=== PATIENT | female | born 1965 | race Caucasian/White ===

== ENCOUNTER → 2019-02-08 10:58 | Outpatient (CLI) | payer BC, SELFPAY ==
--- NOTE | 2019-02-05 03:11 | HP_ITS ---
Intake Vital Signs 02/05/19 Height 5 ft 3 in 02/05/19 Weight: 150 lb 02/05/19 Body Mass Index (BMI) 26.5 02/05/19 Blood Pressure 150/84 H 02/05/19 Blood Pressure Location Rt brachial 02/05/19 Blood Pressure Position Sitting 02/05/19 Respiratory Rate 18 02/05/19 Pulse Rate 67 02/05/19 Pulse Source Monitor 02/05/19 Temperature 98.5 F 02/05/19 Temperature Source Oral 02/05/19 Pulse Ox 98 02/05/19 Oxygen Delivery Method room air Intake Visit Reasons: R Breast Birads 4 Mammo [facility] Machine Operator Required: No Is patient in pain?: No Allergies amoxicillin Allergy (Severe, Verified 02/05/19 14:09) rash/throat swells gabapentin Allergy (Intermediate, Verified 02/05/19 14:09) mental issues minocycline Allergy (Unknown, Verified 02/05/19 14:09) unknown Medications cholecalciferol (vitamin D3) 2,000 unit capsule 2,000 unit PO DAILY 02/05/19 [History Confirmed 02/05/19] multivitamin capsule 1 cap PO DAILY 02/05/19 [History Confirmed 02/05/19] PFSH Medical History Abnormal mammogram of right breast (Acute) Abnormal mammogram of right breast (Acute) Depression with anxiety (Acute) History of back problems (Acute) Lump of right breast (Acute) Surgical History History of arthroscopy of left knee (Acute) History of lumbar laminectomy (Acute) History of right breast biopsy (Acute) History of tubal ligation (Acute) history diagnostic laparoscopy (Acute) Family History Grandmother Breast cancer Colon cancer Diabetes Heart disease Mother Hypertension Hypercholesterolemia Cancer skin Social History Smoking Status: Former smoker alcohol intake: never substance use type: does not use HPI HPI HPI: VERA LYNN, is a 53 F who presents to the office today for HPI HPI Surgical H&P: Yes HPI: VERA LYNN, is a 53 F who presents to the office today for surgical consultation for an abnormal mammogram. The patient is referred by Dr. Yesenia Kumar and a written compromise surgical consult and recommendations will return to her. I have assisted the patient in the past. Most recently July 16, 2011. That point recanted that she is a A0 for female. First child was born when she was 17. She did breast-feed but only for 3 weeks. She has had a very remote right breast biopsy which was negative. She was on estrogen replacement for period of time. Family history is negative for breast cancer or mastitis. The patient has had known fibrocystic breast disease bilaterally. She has had previous cyst aspiration particular the right breast but it recurs. I aspirated her in 2010. The patient presents because of intermittent soreness swelling even to the degree of may be some erythema upper mid right breast. She states however that by the time she gets a appointment that the area seems to resolve. On January 31, 2019 at the [facility] she had bilateral mammography. The mammograms suggested scattered cysts both breasts. There are regional pleomorphic calcifications of the right breast 12:00 anterior depth. These are felt to have increased in size BI-RADS Category 4. The patient also had dedicated right and left breast ultrasound. The left breast ultrasound demonstrated a simple cyst. The right breast ultrasound demonstrated BI-RADS Category 3. A 2.5 cm benign-appearing cyst right breast 12 o'clock position that correlates with the palpable abnormality. There is a 5 mm probably benign complex cyst 12:00. There is an additional 1 cm probably benign cyst with internal echoes right breast 12:00. An additional cyst at 1:00. The patient has not had any nipple discharge. Finally the patient has a small crescent shaped area of seemingly dermatitis associated with the areola. She states that she is scheduled to have Dr. Yesenia Kumar perform a punch biopsy of the skin area ROS General General: Yes fatigue; no weight change, appetite, colon cancer, breast cancer or weakness HEENT HEENT: No difficulty swallowing, eye injury, eye surgery, swollen glands or hoarseness Endo Endocrine: No thyroid disease, diabetes mellitus, thyroid cancer, Hair loss, heat intolerance or cold intolerance Skin Skin: Yes rash; no changing moles Breast Breast: Yes right breast lump, abnormal mammogram and abnormal US; no left breast lump, nipple discharge, breast pain or breast enlargement Musc Musculoskeletal: Yes back problems; no arthritis, rheumatoid arthritis, gout or joint pain Cardio Cardiovascular: No murmur, pacemaker, heart disease, atrial fibrillation, high blood pressure, heart attack, heart stent, palpitations, shortness of breat with exertion or chest pain Psych Psychiatric: Yes depression and anxiety; no hearing voices Resp Respiratory: No shortness of breath, No sleep apnea, No cough, No COPD, No asthma, No emphysema, No wheezing Gastro Gastrointestinal: Yes abdominal pain, No nausea or vomiting, Yes diarrhea, Yes constipation, No blood in stool, Yes acid reflux, No hemorrhoids, No ulcers, No gallbladder problem, No black,tarry stools Elia Hematologic: No blood thinners, No blood disorders, No bleeding, No anemia, No blood clots Neuro Neurologic: No system reviewed and no additional complaints, except as docu, No as per HPI, No abnormal walking, No abnormal hearing, No abnormal movements, No abnormal speech, No behavioral changes, No burning sensations, No confusion, No seizure-like activity, No unsteadiness, No dizziness, No localized weakness, No frequent falls, No headache(s), No lack of coordination, No loss of vision, No memory loss, No numbness, No other visual disturbances, No radiating pain, No restless legs, No sensory deficit, No fainting, No tingling, No tremor(s), No weakness, No other Exam Const General: cooperative, healthy appearing, comfortable, no acute distress Nutritional Appearance: average body habitus Orientation: alert, awake, oriented x3 HENMT Head: normal to inspection Chest Breast Palpation: No nipple discharge Other: Right breast: Rubbery nodule 12 o'clock position +1 cm from the areola. Tender. Mild diffuse fibrous change upper outer right breast. No nipple discharge. No axillary or clavicular adenopathy. Inner aspect of the right areolar there is a 2 x 0.5 cm crescent shaped area of slight erythematous skin. Left breast is nodularity at retroareolar 1 o'clock position. Rubbery mobile. No nipple discharge. No axillary or clavicular adenopathy Resp Effort & Inspection: normal respiratory effort Auscultation: clear to auscultation bilaterally Cardio Rate: regular rate Rhythm: regular rhythm Heart Sounds: no murmurs GI Inspection: normal to inspection Palpation: soft, no hepatosplenomegaly Auscultation: normal bowel sounds Neuro Cognition: normal cognition Extrem General: no calf tenderness bilaterally Psych Affect: normal affect Assessment & Plan 1. Abnormal mammogram of right breast R92.8 Plan Pleasant 53-year-old female with 3 separate issues. There are clustered increased microcalcifications upper mid right breast 12 o'clock position. I recommend stereotactic needle core biopsy of this area. The patient has a dominant cyst upper mid right breast. She has some smaller cysts which have some questionable internal echoes. The larger cyst waxes and wanes constantly gives her discomfort. Regarding this area I would recommend a ultrasound-guided mammotome biopsy of the larger cyst at least in an attempt to disrupt it possibly. The smaller cyst could be addressed with ultrasound-guided fine-needle aspiration to definitively determine that they are cysts. Finally the patient is already scheduled to have a punch biopsy of the right areolar dermatologic issue. This finding does not suggest Paget's. I appreciate the opportunity of assisting with surgical care. We will try to schedule and work around Dr. Kumar's plan procedures as well I appreciate the opportunity of assisting with her surgical care CC: Dr. Yesenia Kumar and Carolyn Lazo, [facility] Braden Dsouza M.D., F.A.C.S. Coding Level of Care Code Detailed, Low Diagnoses Abnormal mammogram of right breast R92.8 02/05/19 1511 <Electronically signed by Braden Dsouza MD> Date Braden Dsouza MD Patient reviewed and no changes. Emely
[2019-02-05 14:07] VITALS: BMI 26.5
--- NOTE | 2019-02-08 11:30 | BRBX_PTH ---
PATIENT: VERA LYNN LOC: [facility] U#:[id number] AGE/SX: 59/F ROOM: RE02/08/[address]: Dr. Braden Dsouza MD : 1965 BED: DIS: SPEC #: [id number] RECD: 02/08/19 12:55 STATUS: KHOI BRETT #: [id number] YULIYA: 02/08/19 11:[address]: Braden Dsouza DEPT: SURGICAL PATHOLOGY RECD BY: Juliana Brian ENTERED: 02/08/19 13:41 SP TYPE: BREAST BX WILLI DR: Carolyn Lazo, [facility] OFFICER-Kasandra Tissues: Right breast, NOS Procedures: Surgery Specimen Level IV HEADER OPERATION: Right breast stereotactic biopsy PRE-OP DIAGNOSIS: Right breast calcifications 12 o'clock anterior depth TISSUE SUBMITTED: Right breast core tissue ISCHMEIC TIME: 1 minute FIXATION TIME: 8.5 hours MICROSCOPIC DIAGNOSIS Right breast at 12 o'clock, stereotactic core biopsy: 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 Fibrocystic change with rupture and associated reactive change. Microcalcifications. Unremarkable fragment of skin. AM:judith 02/09/19 COMMENT Case has been reviewed in consultation with Dr. Cochran who concurs with the above diagnosis. IDC:GRUPO MICROSCOPIC DESCRIPTION Slides are reviewed. GROSS DESCRIPTION Received is one container labeled with the patient's name and not further designated. The specimen consists of multiple elongated fragments of irwin-yellow fibroadipose tissue mixed with blood clot that in aggregate measure 5 x 2 x 0.3 cm. The entire specimen is submitted in two cassettes. / GRUPO:judith 02/08/19 TC:? CPT: 37254
--- NOTE | 2019-02-08 11:56 | PCM.OPRPT ---
Problem List (1) Abnormal mammogram of right breast Status: Acute Report of Operation Date of Procedure: 02/08/19 Pre-Operative Diagnosis: Extensive microcalcifications upper mid right breast Post-Operative Diagnosis: Same Surgery/Procedure Performed:: Stereotactic needle core biopsy upper mid right breast Description of Surgical Findings:: Timeout and informed consent was obtained. 53-year-old female was taken to the stereotactic suite placed on the table the right breast was placed in the cc view. There are extensive amount of microcalcifications present. This is not one tight area of focal clustering. Stereotactic images were obtained. Digital information was taken on a single target site. The breast was prepped with Betadine. 1% lidocaine was used as local anesthetic. A total of 10 cc was used. A small stab incision was created. The resolve mammotome needle was advanced to prefire depth. Prefire films were obtained demonstrating adequate localization foot. The device was fired. 7 cores were obtained. This did take a slight amount of skin is the area was more superficial than anticipated. Specimen mammograms were obtained. Every single core had microcalcifications present. Small marking clip was left in position. She was released from the device. Pressure was held for hemostasis. Sure prep and then Steri-Strips applied to approximate the skin followed by a Telfa OpSite dressing. The specimens had immediately been placed in formalin for analysis. She tolerated the procedure well no apparent complication. She will be notified of pathology results as they become available. She also has a large symptomatic cyst in the upper mid right breast. At her discretion she might return to the office for consideration of ultrasound-guided mammotome biopsy of this in hopes of disrupting it. Braden Dsouza M.D., F.A.C.S. Type of Anesthesia:: Local Estimated Blood Loss (mL): minimal
== END ==
PROVIDERS: Family Provider Nurse Practitioner Adult Health; PCP Nurse Practitioner Adult Health; Referring Provider Surgery; Visit Provider Surgery
DX: N60.91 Unspecified benign mammary dysplasia of right breast (principal); N60.01 Solitary cyst of right breast; Z87.891 Personal history of nicotine dependence; Z98.51 Tubal ligation status
CPT/HCPCS: 19081; 88305; J7050

== ENCOUNTER → 2020-06-05 14:51 | Outpatient (CLI) | payer BC, SELFPAY ==
[2019-02-05 14:07] VITALS: BMI 26.5
[2020-06-05 17:39] LABS: Absolute Lymphocyte Count 1.82 X10^3/uL (0.83-4.51); Basophil# 0.05 X10^3/uL; Basophil% 0.9 % (0-1); Eosinophil# 0.07 X10^3/uL; Eosinophils% 1.3 % (0-5); Hematocrit 37.7 % (37-47); Hemoglobin 12.3 g/dL (12.0-15.0); Lymphocyte # 1.82 X10^3/ul (4.0); Lymphocyte % 33.5 % (19-41); Mean Corp Hgb Conc 32.6 g/dL (32-36); Mean Corpuscular Hgb 29.9 pg (27.0-32.0); Mean Corpuscular Volume 91.7 fL (81-99); Mean Platelet Vol. 9.4 fl (6.2-12.0); Monocyte# 0.44 X10^3/uL; Monocyte% 8.1 % (0-10); NRBC Flagged by Analyzer 0 % (0-5); Neutrophil # 3.03 X10^3/uL (2.7-7.7); Neutrophil % 55.8 % (47-70); Platelet Count 265 K/mm3 (150-450); RBC Distribution Width CV 12.7 % (11.6-14.6); RBC Distribution Width SD 42.3 fl (35.1-43.9); Red Blood Count 4.11 M/mm3 (4.2-5.4); White Blood Count 5.4 K/mm3 (4.4-11.0)
[2020-06-05 17:49] LABS: Vitamin B12 610 pg/mL (211-911); Vitamin D,25 Hydroxy 51.5 ng/mL
[2020-06-05 17:55] LABS: Erythrocyte Sedimentation Rate 12 mm/hr (0-30)
[2020-06-05 18:02] LABS: AST(SGOT) 19 U/L (15-37); Alanine Aminotransfer ALT/SGPT 36 U/L (13-56); Albumin, Serum 3.6 g/dL (3.2-5.0); Alkaline Phosphatase 89 U/L (45-117); Anion Gap 5 (5-15); BUN 14 mg/dL (7-18); BUN/Creat Ratio 19.3 RATIO (10-20); Calcium,Total 8.8 mg/dL (8.5-10.1); Chloride 107 mmol/L (98-107); Creatinine, Serum 0.73 mg/dL (0.55-1.02); EST Glomerular Filtration Rate 88 mL/min (>60); Est Glom Filt Rate - Afr Amer 106 mL/min (>60); Free T3 2.9 pg/mL (2.18-3.98); Globulin 3.5 g/dL (2.2-4.2); Glucose 94 mg/dL (74-106); Potassium 3.6 mmol/L (3.5-5.1); Protein, Total 7.1 g/dL (6.4-8.2); Sodium Level 140 mmol/L (136-145); T4 Free Direct 0.92 ng/dL (0.76-1.46); Thyroid Stim Hormone (TSH) 0.62 uIU/mL (0.358-3.74)
== END ==
PROVIDERS: PCP Family Medicine; Referring Provider Family Medicine; Visit Provider Family Medicine
DX: R53.83 Other fatigue (principal); R79.89 Other specified abnormal findings of blood chemistry
CPT/HCPCS: 36415; 80053; 82306; 82533; 82607; 82746; 84439; 84443; 84481; 85025; 85652

== ENCOUNTER 2020-09-02 06:15 | Day surgery (SDC) | payer BC, SELFPAY ==
[2019-02-05 14:07] VITALS: BMI 26.5
[2020-09-02 06:45] VITALS: BP 117/84; PULSE 76; RESP 16; TEMP 36.3; O2SAT 98; BMI 26.3
[2020-09-02] MEDS: Lactated Ringers 1,000 ML 100 ML IV (06:50)
--- NOTE | 2020-09-02 07:30 | COLBX_PTH ---
PATIENT: VERA LYNN LOC: EN U#:[id number] AGE/SX: 54/F ROOM: RE09/02/[address]: Dr. Braden Dsouza MD : 1965 BED: DIS: 09/02/2020 SPEC #: [id number] RECD: 09/02/20 11:42 STATUS: KHOI REJeffrey #: [id number] YULIYA: 09/02/20 07:[address]: Braden Dsouza DEPT: SURGICAL PATHOLOGY RECD BY: Yenni Sosa ENTERED: 09/03/20 08:37 SP TYPE: COLON BX OTHR DR: Dr. Luis Parsons MD Tissues: Ascending colon Procedures: Surgery Specimen Level IV HEADER OPERATION: Colonoscopy - open access (MAC) PRE-OP DIAGNOSIS: Screening for intestinal cancer TISSUE SUBMITTED: Mid ascending polyp MICROSCOPIC DIAGNOSIS Mid ascending colon polyp, biopsy: Tubular adenoma. AM:judith 09/03/20 MICROSCOPIC DESCRIPTION Slides are reviewed. GROSS DESCRIPTION Received in fixative is one container labeled with the patient's name and designated mid ascending polyp. The specimen consists of one irregular fragment of light irwin soft tissue that measures 0.6 x 0.5 x 0.2 cm. The specimen is totally submitted in one cassette. / AM:judith 09/02/20 TC:5 CPT: 63754
--- NOTE | 2020-09-02 07:30 | PCM.HP.STD ---
Problem List (1) Screening for intestinal cancer Status: Acute History of Present Illness Date of Admission: 09/02/20 The patient is a 54 year old F who presents for screening colonoscopy today. Her previous 1 was 10 years ago. She denies bright red blood per rectum or melena. No abdominal pain. She otherwise feels well. Past Medical History Medical History: Medical History (Last Reviewed 02/05/19 @ 14:05 by Rosemary Freeman) Abnormal mammogram of right breast (Acute) R92.8 Abnormal mammogram of right breast R92.8 Depression with anxiety F41.8 History of back problems Lump of right breast N63.10 Allergies amoxicillin Allergy (Severe, Verified 09/02/20 06:45) rash/throat swells gabapentin Allergy (Intermediate, Verified 09/02/20 06:45) mental issues minocycline Allergy (Unknown, Verified 09/02/20 06:45) unknown Home Medications: Ambulatory Orders Medication Instructions Recorded cholecalciferol (vitamin D3) 50 2,000 unit PO DAILY 02/05/19 mcg (2,000 unit) capsule Escitalopram Oxalate [Lexapro] 10 mg PO DAILY 08/26/20 Surgical History: Surgical History (Last Updated 02/05/19 @ 14:06 by Rosemary Freeman) History of arthroscopy of left knee Z98.890 History of lumbar laminectomy Z98.890 History of right breast biopsy Z98.890 History of tubal ligation Z98.51 history diagnostic laparoscopy Smoking Status: Former smoker Tobacco Use: Non-smoker Review of Systems Constitutional: Denies: Fever, Night Sweats Cardiovascular: Denies: Chest Pain Respiratory: Denies: Cough, Shortness of Breath Gastrointestinal: Denies: Abdominal Pain, Hematochezia, Melena Musculoskeletal: Denies: Leg Pain Endocrine: Denies: Change in Body Habitus VTE Information - Inpt Only VTE Present on Admission: No - Physical Exam Vitals/I&O's: Vital Signs Temp Pulse Resp BP Pulse Ox 97.4 F L 76 16 117/84 H 98 09/02/20 06:45 09/02/20 06:45 09/02/20 06:45 09/02/20 06:45 09/02/20 06:45 Oxygen Delivery Method Room Air Weight: 148 lb 12.992 oz Body Mass Index (BMI) 26.3 General: Alert, Oriented x3, Cooperative, No apparent distress HEENT: Atraumatic Lungs: Clear to auscultation, Normal air movement Cardiovascular: Regular rate, Regular Rhythm Abdomen: Soft, Non Tender Extremities: No Calf Tenderness Psych/Mental Status: Normal Affect Microbiology Past 72 Hours 09/01/20 10:10 Interface Orders SARS-CoV-2 Antigen (Rapid) - Final Current Medications Lactated Ringer's () 1,000 mls @ 100 mls/hr IV .Q10H KRISTINA Last Admin: 09/02/20 06:50 Dose: 100 mls/hr Documented by: Assessment/Plan All Active Problems (Last Reviewed 02/05/19 @ 14:05 by Rosemary Freeman) Screening for intestinal cancer (Acute) Abnormal mammogram of right breast (Acute) 54-year-old female presents for screening colonoscopy. Previous 10 years prior. She denies any acute symptoms. She otherwise enjoys good health. She presents via open access. She is aware of the technique, benefit, risk, alternatives. We will proceed as indicated. Braden Dsouza M.D., F.A.C.S.
[2020-09-02 07:55] VITALS: BP 117/84; BP 126/93; PULSE 82; RESP 16; TEMP 36.1; O2SAT 99
--- NOTE | 2020-09-02 07:57 | OP.COLON_ITS ---
Patient Name: Amaya Buckley Procedure Date: 09/02/2020 7:26 AM Date of : 1965 Age: 54 Procedure: Colonoscopy Indications: Screening for colorectal malignant neoplasm Providers: Braden Dsouza MD Referring MD: Mick Parsons Medicines: See the Anesthesia note for documentation of the administered medications Patient Profile: Last Colonoscopy: 10 years ago. Complications: No immediate complications. Procedure: Pre-Anesthesia Assessment: - Prior to the procedure, a History and Physical was performed, and patient medications and allergies were reviewed. The patient's tolerance of previous anesthesia was also reviewed. The risks and benefits of the procedure and the sedation options and risks were discussed with the patient. All questions were answered, and informed consent was obtained. Prior Anticoagulants: The patient has taken no previous anticoagulant or antiplatelet agents. ASA Grade Assessment: II - A patient with mild systemic disease. After reviewing the risks and benefits, the patient was deemed in satisfactory condition to undergo the procedure. After I obtained informed consent, the scope was passed under direct vision. Throughout the procedure, the patient's blood pressure, pulse, and oxygen saturations were monitored continuously. The Colonoscope was introduced through the anus and advanced to the cecum, identified by appendiceal orifice and ileocecal valve. The colonoscopy was somewhat difficult due to a tortuous colon. Successful completion of the procedure was aided by applying abdominal pressure. The patient tolerated the procedure well. The quality of the bowel preparation was good. The ileocecal valve and the appendiceal orifice were photographed. Scope In: 7:37:41 AM Scope Withdrawal Time 0 hours 9 minutes 31 seconds Scope Out: 7:51:36 AM Total Procedure Duration Time 0 hours 13 minutes 55 seconds Findings: The digital rectal exam findings include non-thrombosed external hemorrhoids, non-thrombosed internal hemorrhoids and internal hemorrhoids that prolapse with straining, but require manual replacement into the anal canal (Grade III). A 9 mm polyp was found in the mid ascending colon. The polyp was sessile. The polyp was removed with a saline injection-lift technique using a hot snare. Resection and retrieval were complete. Scattered diverticula were found in the sigmoid colon. Impression: - Non-thrombosed external hemorrhoids, non-thrombosed internal hemorrhoids and internal hemorrhoids that prolapse with straining, but require manual replacement into the anal canal (Grade III) found on digital rectal exam. - One 9 mm polyp in the mid ascending colon, removed using injection-lift and a hot snare. Resected and retrieved. - Diverticulosis in the sigmoid colon. Recommendation: - Discharge patient to home. - Resume previous diet. - Continue present medications. - Repeat colonoscopy in 5 years for surveillance based on pathology results. - Telephone my office for pathology results in 1 week. Procedure Code(s): --- Professional --- 69657, Colonoscopy, flexible; with removal of tumor(s), polyp(s), or other lesion(s) by snare technique 98249, Colonoscopy, flexible; with directed submucosal injection(s), any substance Diagnosis Code(s): --- Professional --- Z12.11, Encounter for screening for malignant neoplasm of colon K64.2, Third degree hemorrhoids K64.4, Residual hemorrhoidal skin tags D12.2, Benign neoplasm of ascending colon K57.30, Diverticulosis of large intestine without perforation or abscess without bleeding CPT copyright 2017 [employer]. All rights reserved. The codes documented in this report are preliminary and upon car repairer review may be revised to meet current compliance requirements. Braden Dsouza MD 09/02/2020 7:56:59 AM This report has been signed electronically. Number of Addenda: 0 Note Initiated On: 09/02/2020 7:26 AM
--- NOTE | 2020-09-02 07:57 | OP.CCLET_ITS ---
09/02/2020 Mick Parsons [address] [place] [address] Re : Colonoscopy procedure for Amaya Buckley Dear Dr. Parsons This procedure was performed on Wednesday, September 02, 2020. My impressions and recommendations are as follows: Impressions : - Non-thrombosed external hemorrhoids, non-thrombosed internal hemorrhoids and internal hemorrhoids that prolapse with straining, but require manual replacement into the anal canal (Grade III) found on digital rectal exam. - One 9 mm polyp in the mid ascending colon, removed using injection-lift and a hot snare. Resected and retrieved. - Diverticulosis in the sigmoid colon. Recommendations : - Discharge patient to home. - Resume previous diet. - Continue present medications. - Repeat colonoscopy in 5 years for surveillance based on pathology results. - Telephone my office for pathology results in 1 week. My findings are described in the full procedure note, which is enclosed. If I can be of further assistance, please feel free to contact me at Doctor phone number(s): Work: . Sincerely, Braden Dsouza MD 09/02/2020 7:56:59 AM This report has been signed electronically.
[2020-09-02 08:00] VITALS: BP 117/84; BP 129/85; PULSE 76; PULSE 80; RESP 16; O2SAT 99
[2020-09-02 08:05] VITALS: BP 117/84; BP 132/86; PULSE 79; RESP 16; O2SAT 99
[2020-09-02 08:15] VITALS: BP 117/84; BP 136/92; PULSE 73; RESP 16; TEMP 36.3; O2SAT 100
[2020-09-02 08:29] VITALS: BP 117/84
== END 2020-09-02 08:49 | disposition home or self-care (01) ==
LOC: EN 06:16 → AC 06:17
PROVIDERS: PCP Family Medicine; Referring Provider Family Medicine; Visit Provider Surgery
PROC: 0DJD8ZZ Inspection of Lower Intestinal Tract, Via Natural or Artificial Opening Endoscopic (ICD-10-PCS; CPT 45378; principal; 2020-09-02 07:25)
DX: Z12.11 Encounter for screening for malignant neoplasm of colon (principal); K64.2 Third degree hemorrhoids; K64.4 Residual hemorrhoidal skin tags; D12.2 Benign neoplasm of ascending colon; K57.30 Diverticulosis of large intestine without perforation or abscess without bleeding; F32.9 Major depressive disorder, single episode, unspecified; F41.9 Anxiety disorder, unspecified; Z87.891 Personal history of nicotine dependence; Z20.828 Contact with and (suspected) exposure to other viral communicable diseases
CPT/HCPCS: 45381; 45385; 87426; 88305; C9803; J7120; A4216

== ENCOUNTER → 2020-10-08 09:57 | Outpatient (CLI) | payer BC, SELFPAY ==
[2020-10-08 12:30] LABS: Anion Gap 6 (5-15); BUN 15 mg/dL (7-18); BUN/Creat Ratio 18.8 RATIO (10-20); CRP 3.16 mg/L (0.0-3.0); Calcium,Total 8.8 mg/dL (8.5-10.1); Chloride 108 mmol/L (98-107); EST Glomerular Filtration Rate 79 mL/min (>60); Est Glom Filt Rate - Afr Amer 95 mL/min (>60); Glucose 89 mg/dL (74-106); Magnesium 2.1 mg/dL (1.6-2.6); Rheumatoid Factor < 10.0 IU/mL (<15); Sodium Level 139 mmol/L (136-145); Uric Acid 4.1 mg/dL (2.6-6.0)
[2020-10-08 12:37] LABS: Erythrocyte Sedimentation Rate 11 mm/hr (0-30)
[2020-10-08 12:57] LABS: Absolute Lymphocyte Count 1.48 X10^3/uL (0.83-4.51); Basophil# 0.04 X10^3/uL; Eosinophil# 0.11 X10^3/uL; Eosinophils% 2.7 % (0-5); Hemoglobin 12.8 g/dL (12.0-15.0); Lymphocyte # 1.48 X10^3/ul (4.0); Lymphocyte % 36.7 % (19-41); Mean Corp Hgb Conc 32.8 g/dL (32-36); Mean Corpuscular Volume 91.5 fL (81-99); Mean Platelet Vol. 9.5 fl (6.2-12.0); Monocyte# 0.42 X10^3/uL; Monocyte% 10.4 % (0-10); NRBC Flagged by Analyzer 0 % (0-5); Neutrophil # 1.97 X10^3/uL (2.7-7.7); Platelet Count 267 K/mm3 (150-450); RBC Distribution Width CV 13.1 % (11.6-14.6); RBC Distribution Width SD 43.5 fl (35.1-43.9); Red Blood Count 4.26 M/mm3 (4.2-5.4)
[2020-10-09 16:08] LABS: Endomysial Antibody IgA Negative (Negative)
[2020-10-09 20:51] LABS: ANTINUCLEAR ANTIBODIES DIRECT Negative (Negative); Deamidated Gliadin IgA 3 units (0-19); Deamidated Gliadin IgG 2 units (0-19); Immunoglobulin A 144 mg/dL (87-352); t-Transglutaminase IgA <2 U/mL (0-3)
== END ==
PROVIDERS: PCP Family Medicine; Referring Provider Family Medicine; Visit Provider Family Medicine
DX: R25.2 Cramp and spasm (principal); K58.9 Irritable bowel syndrome, unspecified; M25.50 Pain in unspecified joint
CPT/HCPCS: 36415; 80048; 82784; 83516; 83735; 84550; 85025; 85652; 86038; 86140; 86255; 86431

== ENCOUNTER → 2021-01-05 10:59 | Outpatient (CLI) | payer BC, SELFPAY ==
[2021-01-05 12:23] LABS: Erythrocyte Sedimentation Rate 13 mm/hr (0-30)
[2021-01-05 12:25] LABS: Absolute Lymphocyte Count 1.75 X10^3/uL (0.83-4.51); Absolute Neutrophil Count 3.7 X10^3/uL (2.0-7.7); Basophil# 0.04 X10^3/uL; Basophil% 0.7 % (0-1); Eosinophil# 0.05 X10^3/uL; Eosinophils% 0.8 % (0-5); Hematocrit 37.7 % (37-47); Hemoglobin 12.2 g/dL (12.0-15.0); Lymphocyte # 1.75 X10^3/ul (0.83-4.51); Lymphocyte % 28.6 % (19-41); Mean Corp Hgb Conc 32.4 g/dL (32-36); Mean Corpuscular Volume 92.9 fL (81-99); Mean Platelet Vol. 9.4 fl (6.2-12.0); Monocyte# 0.54 X10^3/uL; Monocyte% 8.8 % (0-10); NRBC Flagged by Analyzer 0 % (0-5); Neutrophil # 3.71 X10^3/uL (2.7-7.7); Neutrophil % 60.6 % (47-70); Platelet Count 258 K/mm3 (150-450); RBC Distribution Width CV 13.2 % (11.6-14.6); RBC Distribution Width SD 44.7 fl (35.1-43.9); Red Blood Count 4.06 M/mm3 (4.2-5.4); White Blood Count 6.1 K/mm3 (4.4-11.0)
[2021-01-05 13:00] LABS: AST(SGOT) 13 U/L (15-37); Alanine Aminotransfer ALT/SGPT 25 U/L (13-56); Albumin, Serum 3.4 g/dL (3.2-5.0); Alkaline Phosphatase 95 U/L (45-117); Anion Gap 7 (5-15); BUN 16 mg/dL (7-18); BUN/Creat Ratio 26.1 RATIO (10-20); Calcium,Total 8.6 mg/dL (8.5-10.1); Chloride 107 mmol/L (98-107); Creatinine, Serum 0.61 mg/dL (0.55-1.02); EST Glomerular Filtration Rate 107 mL/min (>60); Est Glom Filt Rate - Afr Amer 129 mL/min (>60); Globulin 3.5 g/dL (2.2-4.2); Glucose 74 mg/dL (74-106); Potassium 3.9 mmol/L (3.5-5.1); Protein, Total 6.9 g/dL (6.4-8.2); Sodium Level 140 mmol/L (136-145); Thyroid Stim Hormone (TSH) 0.85 uIU/mL (0.358-3.74)
[2021-01-09 14:11] LABS: Alternaria alternata 1.44 kU/L (Class III); Beef <0.10 kU/L (Class 0); Bermuda Grass <0.10 kU/L (Class 0); Bluegrass, Kentucky 2.08 kU/L (Class III); Cat Hair/Dander, Standard 0.26 kU/L (Class 0/I); Corn <0.10 kU/L (Class 0); D farinae Mite 0.86 kU/L (Class II); D pteronyssinus 0.96 kU/L (Class II); Dog Epithelia 0.18 kU/L (Class 0/I); Egg, Whole <0.10 kU/L (Class 0); Elm, American White <0.10 kU/L (Class 0); Milk (Cow) <0.10 kU/L (Class 0); Mouse Urine <0.10 kU/L (Class 0); Oak, White <0.10 kU/L (Class 0); Peanut 0.15 kU/L (Class 0/I); Plantain, English 0.75 kU/L (Class II); Pork <0.10 kU/L (Class 0); Ragweed, Short/Common 2.12 kU/L (Class III); Soybean <0.10 kU/L (Class 0); Wheat <0.10 kU/L (Class 0)
[2021-01-09 20:14] LABS: Chocolate <0.10 kU/L (Class 0)
== END ==
PROVIDERS: PCP Family Medicine; Visit Provider Family Medicine
DX: L29.9 Pruritus, unspecified (principal); T78.03XA Anaphylactic reaction due to other fish, initial encounter
CPT/HCPCS: 36415; 80053; 84443; 85025; 85652; 86003; 86005

== ENCOUNTER → 2021-06-05 16:54 | Outpatient (CLI) | payer BC, SELFPAY ==
--- NOTE | 2021-06-05 17:21 | MRI_ITS ---
STUDY: MRI BRAIN WITHOUT CONTRAST REASON FOR EXAM: Female, 55 years old. SEIZURE LIKE ACTIVITY TECHNIQUE: Standardized multiplanar fat and water weighted pulse sequences were obtained. COMPARISON: None. FINDINGS: Normal size of the ventricles and extra-axial spaces for the patient''s age. Normal white matter tracts of the supratentorial brain. Normal bilateral basal ganglia. Normal thalami. There is no extra-axial fluid accumulation. Normal flow voids within the major intracranial circulation suggesting patency by spin echo criteria. Normal sella turcica, pituitary gland, infundibular stalk, optic chiasm and hypothalamus. Normal tectal plate and pineal gland. Normal midbrain, tamara and medulla. Normal cerebellum. Normal basal cisterns. Normal bilateral temporal bones. MRI/Brain without Contrast IMPRESSION: Unremarkable examination. Electronically Signed: Berna Kaplan MD at 16:10 EDT Tel , Service support ,
== END ==
PROVIDERS: PCP Family Medicine; Visit Provider Family Medicine
DX: R56.9 Unspecified convulsions (principal)
CPT/HCPCS: 70551

== ENCOUNTER → 2021-08-21 08:30 | Outpatient (CLI) | payer BC, SELFPAY ==
--- NOTE | 2021-08-21 08:33 | RAD_ITS ---
EXAM: XR ABDOMEN, 2 VIEWS AND XR CHEST, 1 VIEW CLINICAL INDICATION: ABDOMINAL PAIN bloating, bloody diarrhea x 3 weeks TECHNIQUE: Frontal view of the chest, frontal view of the abdomen/pelvis and upright or decubitus view of the abdomen. This report was created using [employer] report generation technology. COMPARISON: None. FINDINGS: CHEST: LUNGS AND PLEURAL SPACES: Unremarkable. No consolidation or edema. No pneumothorax. No effusion. HEART: Unremarkable. Cardiac silhouette not enlarged. MEDIASTINUM: Central airways and mediastinal contour are unremarkable. ABDOMEN: INTRAPERITONEAL SPACE: No free air. GASTROINTESTINAL TRACT: Unremarkable. Non-obstructive. No bowel or stomach distention. ORGANS: Unremarkable as visualized. No organomegaly. No abnormal calcifications. TUBES, LINES AND DEVICES: None. BONES/JOINTS: See below. SOFT TISSUES: There are bilateral tubal ligation clips. Lumbar spinal fixation hardware noted. RAD/Acute Abdomen Inc Chest IMPRESSION: No acute findings in the chest, abdomen or pelvis. Electronically Signed: Chilo Kowalski MD at 17:04 EST , Service support ,
[2021-08-21 10:03] LABS: Absolute Lymphocyte Count 1.69 X10^3/uL (0.83-4.51); Absolute Neutrophil Count 2.8 X10^3/uL (2.0-7.7); Basophil# 0.03 X10^3/uL; Basophil% 0.6 % (0-1); Eosinophil# 0.04 X10^3/uL; Eosinophils% 0.8 % (0-5); Hematocrit 37.1 % (37-47); Lymphocyte # 1.69 X10^3/ul (0.83-4.51); Lymphocyte % 34.6 % (19-41); Mean Corp Hgb Conc 32.3 g/dL (32-36); Mean Corpuscular Hgb 29.9 pg (27.0-32.0); Mean Corpuscular Volume 92.5 fL (81-99); Mean Platelet Vol. 9.6 fl (6.2-12.0); Monocyte# 0.34 X10^3/uL; NRBC Flagged by Analyzer 0 % (0-5); Neutrophil # 2.75 X10^3/uL (2.7-7.7); Neutrophil % 56.2 % (47-70); Platelet Count 249 K/mm3 (150-450); RBC Distribution Width SD 43.6 fl (35.1-43.9); RET-HE 34.9 pg (30-35); Red Blood Count 4.01 M/mm3 (4.2-5.4); Reticulocyte Count 2.19 % (0.5-1.5); White Blood Count 4.9 K/mm3 (4.4-11.0)
[2021-08-21 10:06] LABS: Erythrocyte Sedimentation Rate 16 mm/hr (0-30)
[2021-08-21 10:27] LABS: ALB/GLOB Ratio 0.9 RATIO (0.9-2.4); AST(SGOT) 24 U/L (15-37); Alanine Aminotransfer ALT/SGPT 40 U/L (13-56); Albumin, Serum 3.5 g/dL (3.2-5.0); Alkaline Phosphatase 93 U/L (45-117); Anion Gap 2 (5-15); BUN 10 mg/dL (7-18); BUN/Creat Ratio 12.2 RATIO (10-20); CRP 6.58 mg/L (0.0-3.0); Calcium,Total 9.2 mg/dL (8.5-10.1); Chloride 109 mmol/L (98-107); Creatinine, Serum 0.82 mg/dL (0.55-1.02); EST Glomerular Filtration Rate 77 mL/min (>60); Est Glom Filt Rate - Afr Amer 93 mL/min (>60); Ferritin 20 ng/mL (8-252); Globulin 3.8 g/dL (2.2-4.2); Glucose 91 mg/dL (74-106); Iron 95 ug/dL (50-170); Iron Binding Capacity,Total 399 ug/dL (250-450); Potassium 4.1 mmol/L (3.5-5.1); Protein, Total 7.3 g/dL (6.4-8.2); Sodium Level 141 mmol/L (136-145); Thyroid Stim Hormone (TSH) 1.31 uIU/mL (0.358-3.74)
== END ==
PROVIDERS: PCP Family Medicine; Referring Provider Family Medicine; Visit Provider Family Medicine
DX: R10.13 Epigastric pain (principal); R63.5 Abnormal weight gain; R19.7 Diarrhea, unspecified
CPT/HCPCS: 36415; 74022; 80053; 82728; 83540; 83550; 84443; 85025; 85045; 85652; 86140

== ENCOUNTER → 2021-08-31 08:34 | Outpatient (CLI) | payer BC, SELFPAY ==
--- NOTE | 2021-08-31 08:36 | RAD_ITS ---
INDICATION: abdominal pain EXAMINATION/TECHNIQUE: Thick and thin oral contrast was administered orally to the patient. Total Fluoroscopic Time: 2:06 minutes/seconds. Number of Fluoroscopic Images: 28 images. COMPARISON: None. FINDINGS: Unremarkable transit through the catheter gastroesophageal sphincter into the stomach, the stomach demonstrates unremarkable contours, unremarkable mucosal folds, no evidence of gastric or consolidations is visualized. No evidence of gastric masses. Unremarkable transit through the gastric outlet into the duodenum. The duodenal bulb is unremarkable. RAD/Upper GI Dual Contrast IMPRESSION: Unremarkable stomach. Electronically Signed: Dominick Mcgowan MD at 11:51 EST Tel , Service support ,
== END ==
PROVIDERS: PCP Family Medicine; Referring Provider Family Medicine; Visit Provider Family Medicine
DX: R10.9 Unspecified abdominal pain (principal)
CPT/HCPCS: 74246

== ENCOUNTER → 2022-04-27 | Outpatient (CLI) | payer BC, SELFPAY ==
[2022-04-27 18:21] LABS: Absolute Lymphocyte Count 2.17 X10^3/uL (0.83-4.51); Absolute Neutrophil Count 4.3 X10^3/uL (2.0-7.7); Basophil# 0.05 X10^3/uL; Basophil% 0.7 % (0-1); Eosinophil# 0.11 X10^3/uL; Eosinophils% 1.5 % (0-5); Hematocrit 36.3 % (37-47); Hemoglobin 12.1 g/dL (12.0-15.0); Lymphocyte # 2.17 X10^3/ul (0.83-4.51); Lymphocyte % 30.5 % (19-41); Mean Corp Hgb Conc 33.3 g/dL (32-36); Mean Corpuscular Hgb 31.1 pg (27.0-32.0); Mean Corpuscular Volume 93.3 fL (81-99); Mean Platelet Vol. 9.4 fl (6.2-12.0); Monocyte# 0.43 X10^3/uL; NRBC Flagged by Analyzer 0 % (0-5); Neutrophil # 4.31 X10^3/uL (2.7-7.7); Neutrophil % 60.6 % (47-70); Platelet Count 239 K/mm3 (150-450); RBC Distribution Width SD 44.3 fl (35.1-43.9); Red Blood Count 3.89 M/mm3 (4.2-5.4); White Blood Count 7.1 K/mm3 (4.4-11.0)
[2022-04-27 18:35] LABS: Erythrocyte Sedimentation Rate 18 mm/hr (0-30)
[2022-04-27 18:47] LABS: AST(SGOT) 22 U/L (15-37); Alanine Aminotransfer ALT/SGPT 46 U/L (13-56); Albumin, Serum 3.4 g/dL (3.2-5.0); Alkaline Phosphatase 96 U/L (45-117); Anion Gap 7 (5-15); BUN 16 mg/dL (7-18); BUN/Creat Ratio 18.5 RATIO (10-20); Calcium,Total 8.6 mg/dL (8.5-10.1); Chloride 107 mmol/L (98-107); Creatinine, Serum 0.86 mg/dL (0.55-1.02); EST Glomerular Filtration Rate 72 mL/min (>60); Est Glom Filt Rate - Afr Amer 87 mL/min (>60); Ferritin 32 ng/mL (8-252); Globulin 3.4 g/dL (2.2-4.2); Glucose 116 mg/dL (74-106); Iron 51 ug/dL (50-170); Potassium 3.6 mmol/L (3.5-5.1); Protein, Total 6.8 g/dL (6.4-8.2); Sodium Level 138 mmol/L (136-145); Thyroid Stim Hormone (TSH) 0.91 uIU/mL (0.358-3.74)
[2022-04-27 18:59] LABS: Vitamin B12 447 pg/mL (211-911); Vitamin D,25 Hydroxy 51.3 ng/mL
== END | disposition home or self-care (01) ==
LOC: MFPLAB 17:00
PROVIDERS: PCP Family Medicine; Visit Provider Family Medicine
DX: T14.8XXA Other injury of unspecified body region, initial encounter (principal); X58.XXXA Exposure to other specified factors, initial encounter; R53.83 Other fatigue
CPT/HCPCS: 36415; 80053; 82306; 82607; 82728; 83540; 84443; 85025; 85652

== ENCOUNTER → 2023-01-10 | Outpatient (CLI) | payer BC, SELFPAY ==
[2023-01-10 18:03] LABS: Hematocrit 38.7 % (37-47); Hemoglobin 12.7 g/dL (12.0-15.0); Mean Corp Hgb Conc 32.8 g/dL (32-36); Mean Corpuscular Hgb 30.5 pg (27.0-32.0); Mean Corpuscular Volume 92.8 fL (81-99); Mean Platelet Vol. 9.5 fl (6.2-12.0); Platelet Count 240 K/mm3 (150-450); RBC Distribution Width CV 12.7 % (11.6-14.6); RBC Distribution Width SD 43.1 fl (35.1-43.9); Red Blood Count 4.17 M/mm3 (4.2-5.4); White Blood Count 5.6 K/mm3 (4.4-11.0)
[2023-01-10 19:07] LABS: ALB/GLOB Ratio 1.1 RATIO (0.9-2.4); AST(SGOT) 30 U/L (15-37); Alanine Aminotransfer ALT/SGPT 61 U/L (13-56); Albumin, Serum 3.7 g/dL (3.2-5.0); Alkaline Phosphatase 94 U/L (45-117); Anion Gap 7 (5-15); BUN 10 mg/dL (7-18); BUN/Creat Ratio 11.7 RATIO (10-20); Calcium,Total 9.6 mg/dL (8.5-10.1); Chloride 107 mmol/L (98-107); Creatinine, Serum 0.85 mg/dL (0.55-1.02); EST Glomerular Filtration Rate 72 mL/min (>60); Est Glom Filt Rate - Afr Amer 88 mL/min (>60); Ferritin 31 ng/mL (8-252); Globulin 3.5 g/dL (2.2-4.2); Glucose 117 mg/dL (74-106); Potassium 3.2 mmol/L (3.5-5.1); Protein, Total 7.2 g/dL (6.4-8.2); Sodium Level 139 mmol/L (136-145); Thyroid Stim Hormone (TSH) 0.85 uIU/mL (0.358-3.74)
== END | disposition home or self-care (01) ==
PROVIDERS: PCP Family Medicine; Visit Provider Family Medicine
DX: R53.83 Other fatigue (principal)
CPT/HCPCS: 80053; 82306; 82533; 82728; 84443; 85027

== ENCOUNTER → 2023-02-23 | Outpatient (CLI) | payer BC, SELFPAY ==
[2023-02-23 18:18] LABS: AST(SGOT) 30 U/L (15-37); Alanine Aminotransfer ALT/SGPT 56 U/L (13-56); Albumin, Serum 3.6 g/dL (3.2-5.0); Alkaline Phosphatase 85 U/L (45-117); Anion Gap 7 (5-15); BUN 17 mg/dL (7-18); BUN/Creat Ratio 20.3 RATIO (10-20); Calcium,Total 9.1 mg/dL (8.5-10.1); Chloride 107 mmol/L (98-107); Creatinine, Serum 0.84 mg/dL (0.55-1.02); EST Glomerular Filtration Rate 74 mL/min (>60); Est Glom Filt Rate - Afr Amer 89 mL/min (>60); Globulin 3.6 g/dL (2.2-4.2); Glucose 79 mg/dL (74-106); Potassium 3.5 mmol/L (3.5-5.1); Protein, Total 7.2 g/dL (6.4-8.2); Sodium Level 139 mmol/L (136-145)
== END | disposition home or self-care (01) ==
PROVIDERS: PCP Family Medicine; Visit Provider Family Medicine
DX: E87.6 Hypokalemia (principal); R53.83 Other fatigue
CPT/HCPCS: 36415; 80053

== ENCOUNTER → 2023-05-10 | Outpatient (CLI) | payer BC, SELFPAY ==
[2023-05-10 14:51] LABS: Ferritin 63 ng/mL (8-252)
== END | disposition home or self-care (01) ==
LOC: MFPLAB 13:38
PROVIDERS: PCP Family Medicine; Visit Provider Internal Medicine Pulmonary Disease
DX: E61.1 Iron deficiency (principal)
CPT/HCPCS: 36415; 82728

== ENCOUNTER → 2023-07-04 | Outpatient (CLI) | payer BC, SELFPAY ==
[2023-07-04 17:16] LABS: Amphetamine Urine VISTA NEGATIVE (<1000 ng/mL); Barbiturate Urine VISTA NEGATIVE (< 200 ng/mL); Benzodiazepine Urine VISTA NEGATIVE (< 200 ng/mL); Cocaine Urine VISTA NEGATIVE (< 300 ng/mL); Ecstacy Urine VISTA NEGATIVE (< 500 ng/mL); Methadone Urine VISTA NEGATIVE (< 300 ng/mL); PCP Urine VISTA NEGATIVE (< 25 ng/mL); THC Urine VISTA NEGATIVE (< 50 ng/mL); Vista UDS pH Range 5
== END | disposition home or self-care (01) ==
LOC: LAB 16:36
PROVIDERS: PCP Family Medicine; Referring Provider Internal Medicine Pulmonary Disease; Visit Provider Internal Medicine Pulmonary Disease
DX: G47.33 Obstructive sleep apnea (adult) (pediatric) (principal)
CPT/HCPCS: 80307

== ENCOUNTER → 2023-08-08 | Outpatient (CLI) | payer BC, SELFPAY ==
[2023-08-08 18:25] LABS: Ferritin 61 ng/mL (8-252)
== END | disposition home or self-care (01) ==
PROVIDERS: PCP Family Medicine; Referring Provider Internal Medicine Pulmonary Disease; Visit Provider Internal Medicine Pulmonary Disease
DX: G25.81 Restless legs syndrome (principal)
CPT/HCPCS: 36415; 82728

== ENCOUNTER → 2023-11-11 | Outpatient (CLI) | payer BC, SELFPAY ==
--- OUTSIDE RECORDS SUMMARY | 2023-11-11 17:30 | XMS RPT_ITS | CCD ---
Author Name Unknown Address [facility] [email or web address] [place] [address] Organization [facility] Care Team Providers Care International Operations Manager Name Role Phone SAQIB MILLS Primary Care Unavailable Allergies Allergy Classification Reported Allergen(s) Allergy Type Date of Onset Reaction(s) Facility (1 source) Amoxicillin; Translations: [AMOXICILLIN] Drug Allergy 11-18-2006 [facility] Repository (1 source) gabapentin; Translations: [GABAPENTIN] Drug Allergy 10-18-2012 [facility] Repository (1 source) Minocycline; Translations: [MINOCYCLINE HCL] Drug Allergy 11-18-2006 [facility] Repository Results Test Name Value Interpretation Reference Range Facil ity Encounters Encounter Date Encounter Type Care Provider Facility Start: 08-01-2023 End: 08-01-2023 ambulatory SAQIB MILLS Facility:[facility] Procedures Date Procedure Procedure Detail Performing Clinician Start: 02-12-2019 Electrocardiogram Payers Date Payer Category Payer Unknown [id number] Progress note 08-01-2023 Note Date & Type Note Facility 08-01-2023 Note HNO ID: [id number] Author: Addie Mccormick PA-C Service: ? Author Type: Physician [employer] Principal Type: Progress Notes Filed: 08/02/2023 8:46 AM Note Text: This note was created using NoteWriter. Subjective Amaya Lynn is a 57 year old female. Patient presents with: Eye Problem: Left eye pain x 7 days 57 y/o female [facility] eye pain/itching x 7 days. She is experiencing redness, soreness and swelling on left lower eyelid. She had white eye discharge this morning. Denies eye injury or trauma. She wears glasses but denies contacts. She has h/o dry eyes and has prescription eye drops with relief of itching. She denies double vision, loss of vision, chills, fevers, headache, chest pain, SOB, or any other symptoms at this time. The history is provided by the patient. Review of Systems Constitutional: Negative for fever. Eyes: Positive for pain, discharge, redness and itching. Negative for visual disturbance. Respiratory: Negative for shortness of breath. Cardiovascular: Negative for chest pain. Neurological: Negative for headaches. Objective BP 126/78 Pulse 68 Temp 36.2 ?C (97.1 ?F) Resp 18 Ht 160 cm (5' 3 ) Wt 85.7 kg (189 lb) LMP 12/07/2017 (Exact Date) SpO2 97% BMI 33.48 kg/m? Physical Exam Vitals and nursing note reviewed. Constitutional: General: She is not in acute distress. Appearance: She is well-developed and well-groomed. She is not ill-appearing or toxic-appearing. HENT: Head: Normocephalic. Eyes: General: Vision grossly intact. Right eye: No foreign body, discharge or hordeolum. Left eye: Hordeolum (2 noted in medial lower eyelid) present.No foreign body or discharge. Extraocular Movements: Extraocular movements intact. Conjunctiva/sclera: Conjunctivae normal. Pupils: Pupils are equal, round, and reactive to light. Comments: Erythema and edema noted to left lower medial eyelid. Cardiovascular: Rate and Rhythm: Normal rate. Pulmonary: Effort: Pulmonary effort is normal. No respiratory distress. Skin: General: Skin is warm. Neurological: Mental Status: She is alert and oriented to person, place, and time. Psychiatric: Attention and Perception: Attention normal. Mood and Affect: Mood normal. Speech: Speech normal. Behavior: Behavior normal. Behavior is cooperative. -I have reviewed and updated with the patient: allergies, VS, current medications, Past Medical History, and Past Social History. ASSESSMENT/PLAN: 1. Hordeolum externum left lower eyelid - ICD9: 373.11, ICD10: H00.015 - CIPROFLOXACIN 0.3 % EYE DROPS - do not try to pop stye - warm compresses - follow up with PCP or eye doctor if symptoms persist - Discussed ER red flags signs with patient Addie Mccormick PA-C - Patient left in stable condition and patient verbalizes understanding and agreeable to plan. All questions and concerns were answered. [facility] Summary Purpose Family History No Family History Records FoundNo Family History Records FoundNo Family History Records Found Advance Directives No Advanced Directives Records FoundNo Advanced Directives Records FoundNo Advanced Directives Records Found Additional Source Comments INFORMATION SOURCE (unrecogn ized section and content) DATE CREATED AUTHOR AUTHOR'S ORGANIZ ATION 02/17/[address] [facility] [employer] DATE CREATED AUTHOR AUTHOR'S ORGANIZ ATION 08/03/2023 [facility] FOR RECORDS PERTAINING TO PATIENTS WHO ARE OR HAVE BEEN ENROLLED IN A CHEMICAL DEPENDENCY/SUBSTANCEABUSE PROGRAM, SOME INFORMATION MAY BE OMITTED. This clinical summary was aggregated from multiple sources. Caution should be exercised in using it in the provision of clinical care. This summary normalizes information from multiple sources, and as a consequence, information in this document may materially change the coding, format and clinical context of patient data. In addition, data may be omitted in some cases. CLINICAL DECISIONS SHOULD BE BASED ON THE PRIMARY CLINICAL RECORDS. [facility] [employer] provides no warranty or guarantee of the accuracy or completeness of information in this document.
[2023-11-11 18:07] LABS: Ferritin 64 ng/mL (8-252)
== END | disposition home or self-care (01) ==
LOC: MFPLAB 16:01
PROVIDERS: PCP Family Medicine; Visit Provider Family Medicine
DX: G25.81 Restless legs syndrome (principal)
CPT/HCPCS: 36415; 82728

== ENCOUNTER → 2024-05-15 | Outpatient (CLI) | payer BC, SELFPAY ==
[2024-05-15 15:49] LABS: Hematocrit 39.2 % (37-47); Hemoglobin 12.5 g/dL (12.0-15.0); Mean Corp Hgb Conc 31.9 g/dL (32-36); Mean Corpuscular Hgb 29.8 pg (27.0-32.0); Mean Corpuscular Volume 93.3 fL (81-99); Mean Platelet Vol. 9.7 fl (6.2-12.0); Platelet Count 238 K/mm3 (150-450); RBC Distribution Width CV 12.7 % (11.6-14.6); RBC Distribution Width SD 43.3 fl (35.1-43.9); White Blood Count 5.8 K/mm3 (4.4-11.0)
[2024-05-15 16:35] LABS: ALB/GLOB Ratio 1.1 RATIO (0.9-2.4); AST(SGOT) 18 U/L (15-37); Alanine Aminotransfer ALT/SGPT 39 U/L (13-56); Albumin, Serum 3.8 g/dL (3.2-5.0); Alkaline Phosphatase 95 U/L (45-117); Anion Gap 6 (5-15); BUN 21 mg/dL (7-18); BUN/Creat Ratio 27.6 RATIO (10-20); Calcium,Total 9.3 mg/dL (8.5-10.1); Chloride 105 mmol/L (98-107); Cholesterol 193 mg/dL (200); Creatinine, Serum 0.76 mg/dL (0.55-1.02); EST Glomerular Filtration Rate 82 mL/min (>60); Est Glom Filt Rate - Afr Amer 100 mL/min (>60); Globulin 3.6 g/dL (2.2-4.2); Glucose 86 mg/dL (74-106); High Density Lipoprotein 60 mg/dL; Potassium 3.9 mmol/L (3.5-5.1); Protein, Total 7.4 g/dL (6.4-8.2); Sodium Level 136 mmol/L (136-145); Triglycerides 88 mg/dL; Very Low Density Lipoprotein 18 mg/dL (5-40)
== END | disposition home or self-care (01) ==
LOC: MFPLAB 11:58
PROVIDERS: PCP Family Medicine; Visit Provider Family Medicine
DX: R07.89 Other chest pain (principal); F41.9 Anxiety disorder, unspecified; E55.9 Vitamin D deficiency, unspecified
CPT/HCPCS: 36415; 80053; 80061; 82306; 84443; 85027

== ENCOUNTER → 2024-08-01 | Outpatient (CLI) | payer BC, SELFPAY ==
[2024-08-01 15:12] LABS: White Blood Cells 0 SEEN /hpf (0-5)
[2024-08-01 18:03] LABS: Color, Urine Yellow (Yellow); Glucose, Dipstick Normal (Normal); Ketone-Dipstick 15 mg/dl (Negative); Leukocyte Esterase-Dipstick Negative /ul (Negative); Nitrite-Dipstick Negative (Negative); Occult Blood-Urine 50 /ul (Negative); Protein-Dipstick Negative (Negative); Specific Gravity, Urine 1.025 (1.002-1.030); Urine Bilirubin Dipstick Negative (Negative); Urine Clarity Clear (Clear); Urine Urobilinogen Normal (Normal)
[2024-08-01 18:21] LABS: Red Blood Cells-Urine 0-5 SEEN /hpf (0-5); Squamous Epithelial Cells - UA 0-5 SEEN /hpf (5-10)
[2024-08-01 18:22] LABS: Bacteria RARE /hpf (None Seen); Mucous, Urine 1+ /hpf (<or=2+)
== END | disposition home or self-care (01) ==
LOC: MFPLAB 15:10 → LABSPEC 15:12
PROVIDERS: PCP Family Medicine; Visit Provider Family Medicine
DX: R31.29 Other microscopic hematuria (principal)
CPT/HCPCS: 81001

== ENCOUNTER 2025-08-27 08:07 | Day surgery (SDC) | payer BC, SELFPAY ==
[2025-08-27] VITALS (11 sets, daily range): BP systolic 94–126; BP diastolic 61–108; PULSE 66–82; RESP 14–16; TEMP 36.1; O2SAT 95–100; BMI 29.4
[2025-08-27] MEDS: Lactated Ringers 1,000 ML 15 ML IV (08:39)
--- NOTE | 2025-08-27 08:58 | H&P.OPEN ---
HPI - General HPI Narrative VERA LYNN, is a 59 F who presents for surveillance colonoscopy. She had a colonoscopy 5 years ago and a polyp was removed. She denies any abdominal pain or blood in the stool. [facility] Medical History (Updated 08/27/25 @ 08:[address] Koko Puente MD) Wears glasses Wears dentures Narcolepsy History of GI bleed Heartburn Sleep apnea CPAP (continuous positive airway pressure) dependence Shortness of breath on exertion Leg cramps PONV (postoperative nausea and vomiting) Former smoker Abnormal mammogram of right breast Depression with anxiety History of back problems Lump of right breast Abnormal mammogram of right breast Home Medications ?Medication ?Instructions ?Recorded ?Last Taken ?Type cholecalciferol (vitamin D3) 50 2,000 unit PO DAILY 02/05/19 Unknown History mcg (2,000 unit) capsule ascorbic acid (vitamin C) 500 mg 1 g PO DAILY 08/23/25 Unknown History chewable tablet (C-500) bupropion HCl 150 mg 24 hr tablet, 150 mg PO DAILY 08/23/25 Unknown History extended release escitalopram oxalate 20 mg tablet 20 mg PO DAILY 08/23/25 Unknown History multivitamin 1 tab PO DAILY 08/23/25 Unknown History solriamfetol 150 mg tablet (Sunosi) 150 mg PO DAILY NARCOLEPSY 08/23/25 Unknown History Allergy/AdvReac Type Severity Reaction Status Date / Time amoxicillin Allergy Severe rash/throat Verified 08/23/25 13:48 swells gabapentin Allergy Intermediate mental Verified 08/23/25 13:48 issues minocycline Allergy Unknown unknown Verified 08/23/25 13:48 Family History (Updated 02/05/19 @ 14:07 by Rosemary Freeman) Grandmother Breast cancer Colon cancer Diabetes Heart disease Mother Hypertension Hypercholesterolemia Cancer skin Surgical History (Updated 08/23/25 @ 13:52 by Nadya Roy) History of colonoscopy History of right breast biopsy history diagnostic laparoscopy History of arthroscopy of left knee History of tubal ligation History of lumbar laminectomy Social History (Updated 02/05/19 @ 15:[address] Braden Dsouza MD) Smoking Status: Former smoker alcohol intake: never substance use type: does not use Past Medical/Surgical History Planned Operation Planned Operative Procedure(s): COLONOSCOPY S.O.S: No Previous Hospitalizations/Surgeries HX Hospitalizations: No HX of Surgeries: lumbar fusion 2014 knee scope left hand middle finger surgery tubal ligation cscope Any Problems With Anesthesia: No You/Your Family Experience Fever (Hyperthermia) With Anes: No Cholinesterase deficiency: No Cardiovascular Hx Chest Pain within Last 2 months: No Hx of Irregular Heartbeat and/or Afib: No Hx Heart Attack: No Hx Congestive Heart Failure: No Hx Rheumatic Fever: No Hx Hypertension: No Hx Internal Defibrillator: No Hx Pacemaker: No Hx Cardiac Catheterization: No Hx Cardiac Surgery/Stents/Etc.: No Hx Stress Test: No Hx Pain in Legs when Walking/Leg Cramps: Yes (occ pain) Respiratory Chronic Cough: No HX of Shortness of Breath: Yes (occ sob with 2 flights of stairs) Hoarseness: No Hx Chronic Obstructive Pulmonary Disease (COPD): No Hx Asthma: No Hx Emphysema: No Hx Sleep Apnea: Yes CPAP: Yes BIPAP: No Hx Respiratory Tract Infection/Cold (presently): No Result (for STOP score): Positive Hx Smoking: Yes (quit 2007) Smoking Status: Former smoker Gastrointestinal Hx Gastrointestinal Disorders: No Hx Gastrointestinal Bleed: No Hx Ulcer: No Hx Hiatal Hernia: No Difficulty Chewing/Swallowing: No Special diet followed at home: No Hx Unplanned Weight Loss of 20#: No HX Unplanned Weight Gain of 20#: No Neurological Hx Seizures: No HX Syncope/Blackout Spells/Unconsciousness: Yes (lightheaded at times) Hx Transient Ischemic Attacks (TIA): No Hx Multiple Sclerosis: No Hx Parkinson's Disease: No Hx Head/Neck Injury: No Hx Headaches: No Hx Back Injury/Pain: Yes (lumbar fusion 2014) Recent Onset of Speech Difficulty: No Restless Legs: No Does patient have nerve stimulator: No Blood Disorder Hx Leukemia: No Bleeding Tendencies: No Hx Deep Vein Thrombosis: No Hx High Cholesterol: No Blood Transmitted Disease: No Hx Hepatitis: No Hx Cirrhosis: No Hx Anemia: No Hx Blood Disorders: No Reproduction : No Is Patient Lactating: No Hx Hysterectomy: No Hx Tubal Ligation: Yes Are You Post Menopause: Yes Genitourinary Hx Renal Disease: No Musculoskeletal Hx Arthritis: No Hx Rheumatoid Arthritis: No Hx Gout: No Recent Onset of an Orthopedic Problem: No Endocrine Hx Diabetes: No Thyroid Disease: No Hx Steroid Therapy: No Psycho/Social Hx Substance Use: No Hx Alcohol Use: No Hx Anxiety: Yes (on med) Hx Depression: No Mental Illness: No Hx Dementia: No Miscellaneous Hx Cancer: No Recent Exposure to Contagious Disease: No Hx of C-Diff: No Any Loose Teeth: No (partial) Allergies amoxicillin Allergy (Severe, Verified 08/23/25 13:48) rash/throat swells gabapentin Allergy (Intermediate, Verified 08/23/25 13:48) mental issues minocycline Allergy (Unknown, Verified 08/23/25 13:48) unknown Discharge Is Pt Admitted From a Penitentiary, or a Intermediate: No Who Could Help: FAMILY After D/C, Where Do you Plan to Go: Return Home Vital Signs Vital Signs Vital Signs: 08/27/25 08:33 08/27/25 08:33 08/27/25 08:33 Temperature 97 F L Temperature Source Temporal Pulse Rate 67 Respiratory Rate 16 Respiratory Pattern Normal Blood Pressure 119/73 Blood Pressure Mean 88 Blood Pressure Source Monitor Blood Pressure Position Sitting Blood Pressure Location Left Arm Baseline BP 119/73 Pulse Ox 100 Oxygen Delivery Method Room Air Weight Weight: 166 lb 0.129 oz Body Mass Index (BMI) 29.4 Physical Exam Const alert and oriented x3 HEENT normocephalic Eyes PERRL Resp normal respiratory effort and normal air movement Cardio regular rate and regular rhythm GI soft to palpation, non-tender and non-distended Extremity normal to inspection Assessment & Plan Assessment/Plan (1) History of colon polyps: PLAN: I explained endoscopy in detail to the patient. I explained the risks including but not limited to stroke or heart attack with anesthesia, perforation of the GI tract, bleeding, infection. I explained that any of these could necessitate further emergency surgery. The patient understands and all questions were answered sufficiently. The patient wishes to proceed with procedure. Koko Puente MD Pager: [facility] [address] [place] [address], [address] [place] [address] Office: Surgery Risks - Colonoscopy Risks Include but are not Limited To: Risks include but are not limited to: Bleeding, perforation requiring further surgery, inability to complete colonoscopy requiring barium enema.
--- NOTE | 2025-08-27 09:03 | PCM.PRE.AN2 ---
ASA Classification* ASA Classification ASA Classification: 2 Assessment & Plan Anesthesia* Anesthesia Assessment Anesthesia Assessment: Discussed sedation and/or anesthesia options, risks, benefits, and alternatives with patient/parents/legal guardian/POA. Questions invited. The patient/parents/legal guardian/POA seems to understand and agrees to proceed with anesthesia plan. Reviewed the physical assessment, medical history, allergy history and patient home medications list prior to surgery/procedure/anesthetic and documented any changes. Performed airway and anesthesia risk assessments. Anesthesia Type Anesthesia Type: MAC History Source History Obtained from:: Patient and Chart Anesthesia Focused Assessment* Temperature: 97 F Pulse Rate: 67 Blood Pressure: 119/73 Respiratory Rate: 16 Pulse Ox: 100 Oxygen Delivery Method: Room Air Airway Assessment Mouth opens: >3 cm Mallampati Score: III Teeth Condition: Dentures (Patient has full upper dentures.) and Partial (Lower partials out.) Neck Range of motion (ROM): Limited ROM (Slight Decrease) Labs Anesthesia Preop lab: CBC WBC, (4.4-11.0) 5.8 K/mm3 05/15/24, 11: RBC, (4.2-5.4) 4.20 M/mm3 05/15/24, 11:59 Hgb, (12.0-15.0) 12.5 g/dL 05/15/24, : Hct, (37-47) 39.2 % 05/15/24, 11: Plt Count, (150-450) 238 K/mm3 05/15/24, 11:59 CHEMISTRY Potassium, (3.5-5.1) 3.9 mmol/L 05/15/24, : Sodium, (136-145) 136 mmol/L 05/15/24, 11:59 Magnesium, (1.6-2.6) 2.1 mg/dL 10/08/20, 09:58 BUN, (7-18) 21 mg/dL H 05/15/24, : Creatinine, (0.55-1.02) 0.76 mg/dL 05/15/24, : Glucose, (74-106) 86 mg/dL 05/15/24, : TSH, (0.358-3.740) 1.160 uIU/mL 05/15/24, 11:59 COAG Pre-Assessment Diagnosis/Proposed Procedure Planned Operative Procedure(s): COLONOSCOPY Anesthesia History 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 When Was Last Pacemaker Check QUESTION #4 FULL TEXT: You/Your Family Experience fever (hyperthermia) with Anesthesia Last Oral Intake Last Oral intake: Last Oral Intake NPO since 22:00 08/27/25 08:33 Meds taken in AM with sips of No 08/27/25 08:33 water? Meds patient instructed to take am of surgery PONV PONV - epoxy coatings installer: PONV - epoxy coatings installer Female Yes 08/23/25 13:53 HX of Motion Sickness No 08/23/25 13:53 HX of N/V After Surgery Yes 08/23/25 13:53 Non-Smoker Yes 08/23/25 13:53 Duration of Surgery greater No 08/23/25 13:53 than 60 minutes Number of Risk Factors 3 08/23/25 13:53 PONV Score Moderate Risk 08/23/25 13:53 Height & Weight Height & Weight: Anesthesia: Height & Weight Height 5 ft 3 in 08/27/25 08:33 Weight: 75.3 kg 08/27/25 08:33 Body Mass Index (BMI) 29.4 08/27/25 08:33 Respiratory Assessment Respiratory Assessment - epoxy coatings installer: Respiratory Tract Infection Hx - epoxy coatings installer Hx Respiratory Tract Infection No 08/27/25 08:59 STOP Sleep Apnea STOP Sleep Apnea - epoxy coatings installer: STOP Sleep Apnea - epoxy coatings installer Hx Hypertension No 08/27/25 08:59 Hx Sleep Apnea Yes 08/27/25 08:59 CPAP Yes 08/27/25 08:59 BIPAP No 08/27/25 08:59 Do you snore loudly (louder than talking or can be heard Do you often feel tired/ fatigued/ sleepy during daytime? Has anyone observed you stop breathing during sleep? STOP Results Positive 08/27/25 08:59 QUESTION #5 FULL TEXT : Do you snore loudly (louder than talking or can be heard through closed doors)? Tobacco Use History Tobacco Use History - epoxy coatings installer: Tobacco Use History - epoxy coatings installer Tobacco Use Smoking Status Former smoker 08/27/25 08:59 Hx Tobacco Use No 08/23/25 13:53 Years Smoking Packs Smoked per Day Smoking Cessation Date was No - quit smoking greater 08/23/25 13:53 within the last 15 years than 15 years ago Hx Smoking Cessation Date Hx Smoking Cessation Counseling Hematologic Medial History Hematologic Hx - epoxy coatings installer: Hematologic Medical Hx - trust manager Hx of Blood Transfusion No 08/23/25 13:53 Hx of Transfusion in last 3 No 08/23/25 13:53 Months Date of Last Transfusion (if within last 3 months) Ever experience any problems No 08/23/25 13:53 with transfusion(s)? Specify any problems Hx of Preganancy in last 3 No 08/23/25 13:53 Months Nurse Filling Out Transfusion MGRIFFITH 08/23/25 13:53 & Questions: Date: 08/23/25 08/23/25 13:53 Time: 13:55 08/23/25 13:53 Patient unable to answer at this time (ie. confused, unrespo /Reproduction History /Reproductive History - epoxy coatings installer: /Reproductive Hx- epoxy coatings installer Hx Now No 08/27/25 08:59 Gestational Age (in weeks): EDC: Hx Hx Para Hx Section SAB No 08/23/25 13:53 Does the father of the baby or his family experience fever w Father of the baby Malignant Hypertension history comment Active Medications Active Medications: Current Medications Generic Name Dose Route Start Last Admin Trade Name Freq PRN Reason Stop Dose Admin Lactated Ringer's 1,000 mls @ 15 mls/hr 08/27/25 08:30 08/27/25 08:39 IV 15 mls/hr .Q48H KRISTINA Administration PFSH Medical History Wears glasses Wears dentures Narcolepsy History of GI bleed Heartburn Sleep apnea CPAP (continuous positive airway pressure) dependence Shortness of breath on exertion Leg cramps PONV (postoperative nausea and vomiting) Former smoker Abnormal mammogram of right breast Depression with anxiety History of back problems Lump of right breast Abnormal mammogram of right breast Home Medications ?Medication ?Instructions ?Recorded ?Last Taken ?Type cholecalciferol (vitamin D3) 50 2,000 unit PO DAILY 02/05/19 Unknown History mcg (2,000 unit) capsule ascorbic acid (vitamin C) 500 mg 1 g PO DAILY 08/23/25 Unknown History chewable tablet (C-500) bupropion HCl 150 mg 24 hr tablet, 150 mg PO DAILY 08/23/25 Unknown History extended release escitalopram oxalate 20 mg tablet 20 mg PO DAILY 08/23/25 Unknown History multivitamin 1 tab PO DAILY 08/23/25 Unknown History solriamfetol 150 mg tablet (Sunosi) 150 mg PO DAILY NARCOLEPSY 08/23/25 Unknown History Allergy/AdvReac Type Severity Reaction Status Date / Time amoxicillin Allergy Severe rash/throat Verified 08/23/25 13:48 swells gabapentin Allergy Intermediate mental Verified 08/23/25 13:48 issues minocycline Allergy Unknown unknown Verified 08/23/25 13:48 Family History Grandmother Breast cancer Colon cancer Diabetes Heart disease Mother Hypertension Hypercholesterolemia Cancer skin Surgical History History of colonoscopy History of right breast biopsy history diagnostic laparoscopy History of arthroscopy of left knee History of tubal ligation History of lumbar laminectomy Social History Smoking Status: Former smoker alcohol intake: never substance use type: does not use Review of Systems (Anesthesia) ROS Narrative System reviewed and no additional complaints, except as documented.
--- NOTE | 2025-08-27 09:30 | OP.PROVAT_ITS ---
08/27/2025 Mick Parsons [address] [place] [address] Re : Colonoscopy procedure for Amaya Buckley Dear Dr. Parsons This procedure was performed on Wednesday, August 27, 2025. My impressions and recommendations are as follows: Impressions : - The entire examined colon is normal on direct and retroflexion views. - No specimens collected. Recommendations : - Discharge patient to home. - Resume previous diet. - Continue present medications. - Repeat colonoscopy in 10 years for screening purposes. My findings are described in the full procedure note, which is enclosed. If I can be of further assistance, please feel free to contact me at Doctor phone number(s): , Work: . Sincerely, Koko Puente MD 08/27/2025 9:29:46 AM This report has been signed electronically.
--- NOTE | 2025-08-27 09:30 | OP.COLON_ITS ---
Patient Name: Amaya Buckley Procedure Date: 08/27/2025 9:05 AM Date of : 1965 Age: 59 Procedure: Colonoscopy Indications: High risk colon cancer surveillance: Personal history of colonic polyps Providers: Koko Puente MD Referring MD: Mick Parsons Medicines: Propofol per Anesthesia Patient Profile: This is a 59 year old female. Refer to note in patient chart for documentation of history and physical. Last Colonoscopy: 5 years ago. Complications: No immediate complications. Procedure: Pre-Anesthesia Assessment: - Prior to the procedure, a History and Physical was performed, and patient medications and allergies were reviewed. The patient's tolerance of previous anesthesia was also reviewed. The risks and benefits of the procedure and the sedation options and risks were discussed with the patient. All questions were answered, and informed consent was obtained. Prior Anticoagulants: The patient has taken no anticoagulant or antiplatelet agents. After reviewing the risks and benefits, the patient was deemed in satisfactory condition to undergo the procedure. After I obtained informed consent, the scope was passed under direct vision. Throughout the procedure, the patient's blood pressure, pulse, and oxygen saturations were monitored continuously. The pediatric colonoscope was introduced through the anus and advanced to the cecum, identified by appendiceal orifice and ileocecal valve. The colonoscopy was performed without difficulty. The patient tolerated the procedure well. The quality of the bowel preparation was good. The ileocecal valve, appendiceal orifice, and rectum were photographed. Scope In: 9:16:48 AM Scope Withdrawal Time 0 hours 6 minutes 22 seconds Scope Out: 9:27:47 AM Total Procedure Duration Time 0 hours 10 minutes 59 seconds Findings: The entire examined colon appeared normal on direct and retroflexion views. Impression: - The entire examined colon is normal on direct and retroflexion views. - No specimens collected. Recommendation: - Discharge patient to home. - Resume previous diet. - Continue present medications. - Repeat colonoscopy in 10 years for screening purposes. Procedure Code(s): --- Professional --- 42868, Colonoscopy, flexible; diagnostic, including collection of specimen(s) by brushing or washing, when performed (separate procedure) Diagnosis Code(s): --- Professional --- Z86.010, Personal history of colonic polyps CPT copyright 2021 [employer]. All rights reserved. The codes documented in this report are preliminary and upon plant protection superintendent review may be revised to meet current compliance requirements. Koko Puente MD 08/27/2025 9:29:46 AM This report has been signed electronically. Number of Addenda: 0 Note Initiated On: 08/27/2025 9:05 AM
--- NOTE | 2025-08-27 09:34 | PCM.POST.ANE ---
Anesthesia: Postop Eval I Current Vital Signs Temperature: 97 F Pulse Rate: 74 Blood Pressure: 123/108 Respiratory Rate: 16 Pulse Ox: 96 Oxygen Delivery Method: Room Air Assessment Airway patent: Yes Spontaneous unlabored respirations: Yes Mental status: Asleep nausea: No Vomiting: No Anesthesia Complication: No Fluid Hydration Crystalloid volume administer (ml): 500 Total IV fluid infused: 500 Progress Note Anesthesia document: Postop Eval 1 completed: Yes
--- NOTE | 2025-08-27 12:58 | PCM.POSTANE2 ---
Anesthesia Postop Eval I Sum Postop Eval Completion status Anesthesia document: Postop Eval 1 completed: Yes Anesthesia Postop Eval I Summary Anesthesia Postop Eval I Summary: Anesthesia Postop Eval I: Assessment Summary Airway patent Yes 08/27/25 09:35 [email or web address] Spontaneous unlabored Yes 08/27/25 09:35 [email or web address] respirations Mental status Asleep 08/27/25 09:35 [email or web address] nausea No 08/27/25 09:35 [email or web address] Vomiting No 08/27/25 09:35 [email or web address] Anesthesia Postop Eval I: Fluid Summary Crystalloid volume administer 500 08/27/25 09:35 [email or web address] (ml) Colloids volume administered ( ml) Blood Product volume administered (ml) Total IV fluid infused 500 08/27/25 09:35 [email or web address] Anesthesia Postop Eval I: Summary Notes Anesthesia Complication No 08/27/25 09:35 [email or web address] Anesthesia Complication Comment: Post-operative progress note Anesthesia: Postop Eval II Evaluation Mental status: Awake and Calm Pain Level: 0 nausea: No Vomiting: No Complications Anesthesia Complication: No
== END 2025-08-27 10:54 | disposition home or self-care (01) ==
LOC: EN 08:10 → AC 08:12
PROVIDERS: PCP Family Medicine; Referring Provider Family Medicine; Visit Provider Surgery
PROC: 0DJD8ZZ Inspection of Lower Intestinal Tract, Via Natural or Artificial Opening Endoscopic (ICD-10-PCS; CPT 45378; principal; 2025-08-27 09:10)
DX: Z12.11 Encounter for screening for malignant neoplasm of colon (principal); Z87.891 Personal history of nicotine dependence; Z86.0100 Personal history of colon polyps, unspecified; Z79.899 Other long term (current) drug therapy; G47.419 Narcolepsy without cataplexy; F41.9 Anxiety disorder, unspecified; F32.A Depression, unspecified
CPT/HCPCS: 45378; J2405